=== PATIENT | female | born 1930 | race Caucasian/White ===

== ENCOUNTER 2018-07-31 17:33 | Emergency (ER) | payer OTHER, MEDICARE ==
[2018-07-31] MEDS ORDERED: cloNIDine HCl 0.1 MG TAB ONE (19:18)
--- NOTE | 2018-07-31 19:20 | RAD REPORT ---
EXAM DESCRIPTION: CT - Head Brain Wo Cont - 07/31/2018 7:10 pm CLINICAL HISTORY: Dizziness COMPARISON: None. TECHNIQUE: Computed axial tomography of the head was obtained. IV contrast was not requested. All CT scans are performed using dose optimization technique as appropriate and may include automated exposure control or mA/KV adjustment according to patient size. FINDINGS: An intracranial bleed is not seen . The ventricles are normal in caliber. No extra-axial fluid collection is noted. Fluid within the sinuses/ mastoids is not seen. IMPRESSION: No acute intracranial abnormality is seen. If patient's symptoms persist MRI of the bra in would be recommended.
[2018-07-31 19:28] LABS: Urine Blood 1+ (NEG); Urine Glucose NEGATIVE (NEG); Urine Protein 1+ (NEG); Urine Specific Gravity 1.015 (1.005-1.030); Urine pH 6.5 (5.0-7.0)
[2018-07-31 19:38] LABS: Absolute Lymphocytes (CBC) 2.2 K/uL (0.7-4.9); Absolute Monocytes 0.5 K/uL (0.1-1.3); Absolute Neutrophil 4.3 K/uL (1.8-8.0); Basophils % 0.4 % (0-1.3); Eosinophils % 0.7 % (0-4.4); Lymphocytes % 31.1 % (15.3-44.8); Monocytes % 7.6 % (3.3-12.3); RBC Red Blood Cell Count 4.96 M/uL (3.86-4.86)
[2018-07-31 19:55] LABS: BUN Blood Urea Nitrogen 17 mg/dL (7-18); Bicarbonate 24 mmol/L (21-32); Glucose Level 125 mg/dL (74-106); Potassium 4.6 mmol/L (3.5-5.1); Sodium Level 129 mmol/L (136-145); Troponin (Emerg Dept Use Only) < 0.02 ng/mL (0.0-0.045)
[2018-07-31 20:38] LABS: Blood Morphology Comment NOT SEEN (NOT SEEN); Platelet Estimate ADEQ
[2018-07-31 20:39] LABS: Urine White Blood Cell Casts OK
--- NOTE | 2018-07-31 20:57 | EDPHYS ---
Physician Documentation [facility] Name: Tonya Montaño Age: 87 yrs Sex: Female : 1930 Arrival Date: 07/31/2018 Time: 17:36 Bed 23 Private MD: ED Physician Darrel Marrero HPI: 07/31 18:55 This 87 yrs old Female presents to ER via Ambulatory with complaints of High rn Blood Pressure. 18:55 The patient has elevated blood pressure and discovered this at home. Onset: The rn symptoms/episode began/occurred at an unknown time. Modifying factors:. Severity of symptoms: At its worst the blood pressure was moderate, in the emergency department the blood pressure is unchanged. The patient has experienced similar episodes in the past. The patient has been recently seen by a physician:. Reports seen by dentist, told BP was high, told to f/u with PCP, who added 2 medications, just started them 2 days ago and today respectively, and still having high blood pressure. Otherwise reports intermittent dizziness and feeling wobbly, but currently no focal neurological complaints. . Historical: - Allergies: 17:45 No Known Allergies; sv - Home Meds: 17:45 losartan-hydrochlorothiazide 100-12.5 mg oral tab 1 tab once daily [Active]; Bystolic sv 20 mg oral tab 1 tab once daily [Active]; spironolactone 50 mg Oral tab 1 tab once daily [Active]; amlodipine 5 mg tab 1 tab once daily [Active]; - PMHx: 17:45 hemorrhoids; Hypertension; rectal bleeding; sv - PSHx: 17:45 Hysterectomy; Appendectomy; sv - Immunization history:: Flu vaccine is not up to date. - Social history:: Smoking status: Patient/guardian denies using tobacco. - Ebola Screening: : No symptoms or risks identified at this time. - Family history:: not pertinent. - Hospitalizations: : No recent hospitalization is reported. ROS: 18:55 Constitutional: Negative for fever, chills, and weight loss, Eyes: Negative for injury, rn pain, redness, and discharge, Neck: Negative for injury, pain, and swelling, Cardiovascular: Negative for chest pain, palpitations, and edema, Respiratory: Negative for shortness of breath, cough, wheezing, and pleuritic chest pain, Abdomen/GI: Negative for abdominal pain, nausea, vomiting, diarrhea, and constipation, MS/Extremity: Negative for injury and deformity, Skin: Negative for injury, rash, and discoloration, Neuro: Negative for headache, weakness, numbness, tingling, and seizure. Exam: 18:55 Constitutional: This is a well developed, well nourished patient who is awake, alert, rn and in no acute distress. Head/Face: Normocephalic, atraumatic. Eyes: Pupils equal round and reactive to light, extra-ocular motions intact. Lids and lashes normal. Conjunctiva and sclera are non-icteric and not injected. Cornea within normal limits. Periorbital areas with no swelling, redness, or edema. Neck: Trachea midline, no thyromegaly or masses palpated, and no cervical lymphadenopathy. Supple, full range of motion without nuchal rigidity, or vertebral point tenderness. No Meningismus. Cardiovascular: Regular rate and rhythm. No pulse deficits. Respiratory: Lungs have equal breath sounds bilaterally, clear to auscultation. No increased work of breathing, no retractions or nasal flaring. Abdomen/GI: soft, non-tender Back: No spinal tenderness. No costovertebral tenderness. Full range of motion. Skin: Warm, dry with normal turgor. Normal color with no rashes, no lesions, and no evidence of cellulitis. MS/ Extremity: Pulses equal, no cyanosis. Neurovascular intact. Full, normal range of motion. Equal circumference. Neuro: Awake and alert, GCS 15, oriented to person, place, time, and situation. Cranial nerves II-XII grossly intact. Motor strength 5/5 in all extremities. Sensory grossly intact. Cerebellar exam normal. Normal gait. Vital Signs: 17:46 BP 229 / 84; Pulse 95; Resp 16; Temp 98; Pulse Ox 98% ; sv 18:01 BP 233 / 93; Pulse 88; Resp 17 S; Pulse Ox 98% on R/A; ca1 18:30 BP 214 / 66; Pulse 86; Resp 19 S; Pulse Ox 99% on R/A; ca1 19:00 BP 201 / 73; Pulse 87; Resp 17 S; Pulse Ox 98% on R/A; ca1 19:30 BP 185 / 63; Pulse 72; Resp 17 S; Pulse Ox 97% on R/A; ca1 20:00 BP 164 / 57; Pulse 70; Resp 16 S; Pulse Ox 97% on R/A; ca1 20:15 BP 154 / 64; Pulse 70; Resp 19; Pulse Ox 98% on R/A; ca1 20:30 BP 144 / 57; Pulse 69; Resp 17; Pulse Ox 97% on R/A; ca1 21:00 BP 154 / 64; Pulse 71; Resp 18 S; Pulse Ox 97% on R/A; ca1 21:15 BP 134 / 54; Pulse 69; Resp 17 S; Pulse Ox 98% on R/A; ca1 MDM: 18:41 Patient medically screened. rn 18:58 Transition of care: After a detail discussion of the patient's case, care is rn transferred to Baljinder Muller MD. 07/31 18:55 Order name: CBC with Diff rn 07/31 18:55 Order name: Basic Metabolic Panel rn 07/31 18:55 Order name: CT Head Brain wo Cont rn 07/31 18:55 Order name: Troponin (emerg Dept Use Only) rn 07/31 19:15 Order name: Urine Dipstick--Ancillary (enter results) cm6 07/31 20:14 Order name: CBC Smear Scan EDOH 07/31 18:55 Order name: EKG; Complete Time: 18:55 rn 07/31 18:55 Order name: EKG - Nurse/Tech; Complete Time: 19:03 rn Administered Medications: 19:04 Drug: cloNIDine 0.2 mg Route: PO; ca1 21:07 Follow up: Response: No adverse reaction; Blood pressure is lowered ca1 Disposition: 07/31/18 20:57 Discharged to Home. Impression: Hypertensive urgency. - Condition is Stable. - Discharge Instructions: Hypertension. - Medication Reconciliation Form, Thank You Letter, Antibiotic Education, Prescription Opioid Use form. - Follow up: Private Physician; When: Upon discharge from the Emergency Department; Reason: If symptoms return, Recheck today's complaints, Continuance of care. - Problem is new. - Symptoms have improved. Signatures: Dispatcher [employer] [facility] Izzy Fonseca RN Darrel Sanford MD MD rn Wadley, Terrence, MD MD tw4 Dasha Peñaloza, RN RN ca1 Corrections: (The following items were deleted from the chart) 21:08 18:55 IV Saline Lock ordered. rn ca1 21:18 20:57 07/31/2018 20:57 Discharged to Home. Impression: Hypertensive urgency. Condition ca1 is Stable. Forms are Medication Reconciliation Form, Thank You Letter, Antibiotic Education, Prescription Opioid Use. Follow up: Private Physician; When: Upon discharge from the Emergency Department; Reason: If symptoms return, Recheck today's complaints, Continuance of care. Problem is new. Symptoms have improved. tw4
--- NOTE | 2018-07-31 20:57 | ER ---
Nurse's Notes [facility] Name: Tonya Montaño Age: 87 yrs Sex: Female : 1930 Arrival Date: 07/31/2018 Time: 17:36 Bed 23 Private MD: Diagnosis: Hypertensive urgency Presentation: 07/31 17:43 Presenting complaint: Patient states: was recently seen at her dentist office and told sv her to f/u with her PCP for HTN. Dr Fernandez added 2 more HTN meds (Norvasc and Aladactone). c/o feeling flushed, intermittent dizziness. Denies CP, SOB. Transition of care: patient was not received from another setting of care. Onset of symptoms is unknown. Care prior to arrival: None. 17:43 Method Of Arrival: Ambulatory sv 17:43 Acuity: RYLEE 3 sv 18:05 Risk Assessment: Do you want to hurt yourself or someone else? Patient reports no ca1 desire to harm self or others. Initial Sepsis Screen: Does the patient meet any 2 criteria? No. Patient's initial sepsis screen is negative. Does the patient have a suspected source of infection? No. Patient's initial sepsis screen is negative. Historical: - Allergies: 17:45 No Known Allergies; sv - Home Meds: 17:45 losartan-hydrochlorothiazide 100-12.5 mg oral tab 1 tab once daily [Active]; Bystolic sv 20 mg oral tab 1 tab once daily [Active]; spironolactone 50 mg Oral tab 1 tab once daily [Active]; amlodipine 5 mg tab 1 tab once daily [Active]; - PMHx: 17:45 hemorrhoids; Hypertension; rectal bleeding; sv - PSHx: 17:45 Hysterectomy; Appendectomy; sv - Immunization history:: Flu vaccine is not up to date. - Social history:: Smoking status: Patient/guardian denies using tobacco. - Ebola Screening: : No symptoms or risks identified at this time. - Family history:: not pertinent. - Hospitalizations: : No recent hospitalization is reported. Screenin:01 Abuse screen: Denies threats or abuse. Denies injuries from another. Nutritional ca1 screening: No deficits noted. Tuberculosis screening: No symptoms or risk factors identified. Fall Risk Ambulatory Aid- Crutches/Cane/Walker (15 pts). Assessment: 18:01 General: Appears in no apparent distress. comfortable, Behavior is calm, cooperative, ca1 appropriate for age. Pain:. Neuro: Level of Consciousness is awake, alert, obeys commands, Oriented to person, place, time, situation, Reports dizziness, since Saturday. Cardiovascular: Heart tones S1 S2 present Capillary refill < 3 seconds Patient's skin is warm and dry. Respiratory: Airway is patent Respiratory effort is even, unlabored, Respiratory pattern is regular, symmetrical, Breath sounds are clear bilaterally. GI: Abdomen is flat, non-distended, Bowel sounds present X 4 quads. Abd is soft and non tender X 4 quads. : No deficits noted. No signs and/or symptoms were reported regarding the genitourinary system. EENT: No deficits noted. No signs and/or symptoms were reported regarding the EENT system. Derm: Skin is intact, is healthy with good turgor, Skin is pink, warm \T\ dry. Musculoskeletal: Circulation, motion, and sensation intact. Capillary refill < 3 seconds. 19:00 Reassessment: Patient appears in no apparent distress at this time. Patient and/or ca1 family updated on plan of care and expected duration. Pain level reassessed. Patient is alert, oriented x 3, equal unlabored respirations, skin warm/dry/pink. 20:00 Reassessment: Patient appears in no apparent distress at this time. Patient and/or ca1 family updated on plan of care and expected duration. Pain level reassessed. Patient is alert, oriented x 3, equal unlabored respirations, skin warm/dry/pink. 21:00 Reassessment: Patient appears in no apparent distress at this time. Patient is alert, ca1 oriented x 3, equal unlabored respirations, skin warm/dry/pink. Vital Signs: 17:46 BP 229 / 84; Pulse 95; Resp 16; Temp 98; Pulse Ox 98% ; sv 18:01 BP 233 / 93; Pulse 88; Resp 17 S; Pulse Ox 98% on R/A; ca1 18:30 BP 214 / 66; Pulse 86; Resp 19 S; Pulse Ox 99% on R/A; ca1 19:00 BP 201 / 73; Pulse 87; Resp 17 S; Pulse Ox 98% on R/A; ca1 19:30 BP 185 / 63; Pulse 72; Resp 17 S; Pulse Ox 97% on R/A; ca1 20:00 BP 164 / 57; Pulse 70; Resp 16 S; Pulse Ox 97% on R/A; ca1 20:15 BP 154 / 64; Pulse 70; Resp 19; Pulse Ox 98% on R/A; ca1 20:30 BP 144 / 57; Pulse 69; Resp 17; Pulse Ox 97% on R/A; ca1 21:00 BP 154 / 64; Pulse 71; Resp 18 S; Pulse Ox 97% on R/A; ca1 21:15 BP 134 / 54; Pulse 69; Resp 17 S; Pulse Ox 98% on R/A; ca1 ED Course: 17:36 Patient arrived in ED. tw3 17:44 Triage completed. sv 17:46 Arm band placed on. sv 17:50 Dasha Peñaloza, LANEY is Primary Nurse. ca1 18:01 Patient has correct armband on for positive identification. Placed in gown. Bed in low ca1 position. Call light in reach. Side rails up X 1. drive in teller on. Pulse ox on. NIBP on. Warm blanket given. 18:41 Darrel Marrero MD is Attending Physician. rn 18:[address] pa 19:10 CT completed. Patient tolerated procedure well. Patient moved back from CT. pa 19:10 CT Head Brain wo Cont In Process Unspecified. EDMS 19:32 Missed attempt(s): 20 gauge in left antecubital area. lt1 19:33 Initial lab(s) drawn, by me, sent to lab. Missed attempt(s): 22 gauge in right lt1 antecubital area. 21:15 No provider procedures requiring assistance completed. IV discontinued, intact, ca1 bleeding controlled, No redness/swelling at site. Pressure dressing applied. Administered Medications: 19:04 Drug: cloNIDine 0.2 mg Route: PO; ca1 21:07 Follow up: Response: No adverse reaction; Blood pressure is lowered ca1 Outcome: 20:57 Discharge ordered by . tw4 21:17 Discharged to home ambulatory, with family. ca1 21:17 Condition: stable 21:17 Discharge instructions given to patient, Instructed on discharge instructions, follow up and referral plans. Demonstrated understanding of instructions, follow-up care. 21:18 Patient left the ED. ca1 Signatures: Dispatcher [employer] [facility] Izzy Fonseca RN RN sv Nieto, Roman, MD MD rn Jordan, Nathan nj Wade, Charlene tw3 Baljinder Muller MD MD tw4 Dasha Peñaloza, RN RN ca1 Ebony Danielle lt1 Corrections: (The following items were deleted from the chart) 17:46 17:43 Presenting complaint: Patient states: was recently seen at her dentist office and sv told her to f/u with her PCP for HTN. Dr Fernandez added 2 more HTN meds. c/o feeling flushed, intermittent dizziness. sv 17:47 17:43 Presenting complaint: Patient states: was recently seen at her dentist office and sv told her to f/u with her PCP for HTN. Dr Fernandez added 2 more HTN meds (Norvasc and Aladactone). c/o feeling flushed, intermittent dizziness. sv 20:52 20:15 BP 144 / 57; Pulse 69bpm; Resp 17bpm; Pulse Ox 97% RA; ca1 ca1
[2018-07-31 21:33] VITALS: TEMP 98
[2018-07-31 21:43] VITALS: BP 134/54; O2SAT 98
--- NOTE | 2018-08-01 07:44 | EKG ---
Test Date: 2018-07-31 Test Time: 18:13:52 Ceramic Maker Demonstrator: CITLALLI MEASUREMENT RESULTS: Intervals: Rate: 83 MT: 226 QRSD: 84 QT: 416 QTc: 488 [place]: P: 55 MT: 226 QRS: -12 T: 71 INTERPRETIVE STATEMENTS: Sinus rhythm with 1st degree AV block Left ventricular hypertrophy with repolarization abnormality Abnormal ECG Compared to ECG 11/18/2011 17:02:00 First degree AV block now present Left ventricular hypertrophy now present Sinus tachycardia no longer present Electronically Signed On 08-01-18 07:43:47 CDT by Clif Fonseca
== END 2018-07-31 21:18 | disposition home or self-care (01) ==
LOC: ER 17:33
DX: I16.0 Hypertensive urgency (principal); I10 Essential (primary) hypertension
CPT/HCPCS: 36415; 70450; 80048; 81003; 84484; 85025; 93005; 99285